=== PATIENT | female | born 1985 | race Hispanic/Latino ===

== ENCOUNTER 2018-03-21 18:07 | Inpatient (IN) | payer MEDICAID ==
[~2018-03-21] VITALS: Ht 162.6 cm; Wt 96.0 kg
== END 2018-03-23 17:45 | disposition home or self-care (01) | DRG 775 ==
LOC: FBCO 18:07 → FBC 18:28
PROVIDERS: ADMIT Obstetrics & Gynecology
PROC: 10E0XZZ Delivery of Products of Conception, External Approach (ICD-10-PCS; principal; 2018-03-21)
PROC: 10907ZC Drainage of Amniotic Fluid, Therapeutic from Products of Conception, Via Natural or Artificial Opening (ICD-10-PCS; 2018-03-21)
DX: O76 Abnormality in fetal heart rate and rhythm complicating labor and delivery (principal); O99.89 Other specified diseases and conditions complicating pregnancy, childbirth and the puerperium; R03.0 Elevated blood-pressure reading, without diagnosis of hypertension; Z3A.39 39 weeks gestation of pregnancy; Z37.0 Single live birth
CPT/HCPCS: 36415; 85027; J2590

== ENCOUNTER 2020-10-09 21:09 | Emergency (ER) | payer OTHER ==
[~2020-10-09] VITALS: Ht 162.6 cm; Wt 79.8 kg
--- NOTE | 2020-10-10 02:30 | EKG ---
[facility] [address] [facility] [place], [place] [address] Signed Normal sinus rhythm Cannot rule out Anterior infarct , age undetermined Abnormal ECG No previous ECGs available Confirmed by TERA VELOZ MD ([id number]) on 10/10/2020 2:30:17 AM Electronically Signed By: TERA VELOZ MD 10/10/20 0230 PATIENT NAME: MERRY BAILEYBLADIMIR Electrocardiogram DATE OF : 87 PHYSICIAN: TERA VELOZ MD REPORT #: [id number] REPORT IS CONFIDENTIAL AND NOT TO BE RELEASED WITHOUT AUTHORIZATION
== END 2020-10-10 | disposition home or self-care (01) ==
LOC: ED 21:09
DX: R55 Syncope and collapse (principal); Z88.8 Allergy status to other drugs, medicaments and biological substances
CPT/HCPCS: 71045; 80053; 84484; 84703; 85025; 93005; 93010; 99284-25; J7121

== ENCOUNTER 2021-06-25 12:20 | Emergency (ER) | payer OTHER ==
[~2021-06-25] VITALS: Ht 162.6 cm; Wt 79.8 kg
--- OUTSIDE RECORDS SUMMARY | 2021-06-25 12:28 | XMS ---
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 [place] VISIT COUNT (12 MO.) [address] TOTAL 4 NOTE: Visits indicate total known visits. ED/UCC VISIT TRACKING (12 MO.) 06/25/2021 12:20 [facility] TYPE: Emergency COMPLAINT: - EAR PAIN 06/23/2021 19:25 [facility] [place] TYPE: Emergency COMPLAINT: - L SIDE FACE PAIN AND NECK DIAGNOSES: - L SIDE FACE PAIN AND NECK 10/09/2020 21:10 [facility] [place] TYPE: Emergency COMPLAINT: - SOB, HIGH BLOOD PREASURE DIAGNOSES: - Allergy status to other drugs, medicaments and biological substances - Syncope and collapse - Allergy status to other drugs, medicaments and biological substances - Shortness of breath 08/19/2020 14:56 [facility] TYPE: Emergency DIAGNOSES: - Other chest pain - Contact with and (suspected) exposure to other viral communicable diseases - Shortness of Breath - Shortness of breath - Chest Pain - Near Syncope - Dizziness and giddiness INPATIENT VISIT TRACKING (12 MO.) No inpatient visits to display in this time frame [email or web address]
[2021-06-25] MEDS ORDERED: NEOMYCIN-POLYMY10 M1 OTIC (12:51)
[2021-06-25] MEDS ORDERED: HYDROCODON-ACE1 EA10 PO (12:51)
== END 2021-06-25 13:06 | disposition home or self-care (01) ==
LOC: ED 12:20
DX: H60.92 Unspecified otitis externa, left ear (principal); Z88.8 Allergy status to other drugs, medicaments and biological substances
CPT/HCPCS: 99282